=== PATIENT | male | born 1995 | race Caucasian/White ===

== ENCOUNTER 2017-03-25 16:08 | Emergency (ER) | payer BC ==
[2017-03-25 16:22] VITALS: BP 143/67
--- NOTE | 2017-03-25 16:28 | UC ---
Hand/Wrist HPI - HPI Summary HPI Summary: shut right hand in care door yesterday pain in 3/4 fingers abrasion 4th knuckle - History Of Current Complaint Chief Complaint: UCUpperExtremity Stated Complaint: RIGHT HAND PAIN Time Seen by Provider: 03/25/17 16:24 Hx Obtained From: Patient ?: No Mechanism Of Injury: crush injury Onset/Duration: Sudden Onset Severity Initially: Moderate Severity Currently: Moderate Pain Intensity: 5 Pain Scale Used: 0-10 Numeric Character Of Pain: Aching, Throbbing Aggravating Factor(s): Movement Alleviating: Nothing Associated Signs And Symptoms: Positive: Negative Related History: Dominant Hand Right - Allergies/Home Medications Allergies/Adverse Reactions: Allergies Allergy/AdvReac Type Severity Reaction Status Date / Time BEES AND WASPS Allergy Severe ANAPHLAXIS Uncoded 03/25/17 16:13 PMH/Surg Hx/FS Hx/Imm Hx Previously Healthy: No Endocrine History Of: Denies: Diabetes, Thyroid Disease Cardiovascular History Of: Reports: Cardiac Disorders - heart murmur Denies: Hypertension Respiratory History Of: Reports: Asthma - as a child Denies: COPD GI/ History Of: Denies: Ulcer - Surgical History Surgical History: None - Family History Known Family History: Negative: Seizure Disorder - Social History Occupation: Unemployed Lives: With Family Alcohol Use: None Substance Use Type: None Smoking Status (MU): Never Smoked Tobacco - Immunization History Most Recent Influenza Vaccination: NONE Most Recent Tetanus Shot: UTD Most Recent Pneumonia Vaccination: N/A Vaccination Up to Date: Yes Review of Systems Constitutional: Negative Skin: Negative Eyes: Negative ENT: Negative Respiratory: Negative Cardiovascular: Negative Gastrointestinal: Negative Genitourinary: Negative Motor: Negative Neurovascular: Negative Musculoskeletal: Negative, Arthralgia - right 3/4 finger Neurological: Negative Psychological: Negative All Other Systems Reviewed And Are Negative: No Physical Exam Triage Information Reviewed: Yes Appearance: Well-Appearing, No Pain Distress, Well-Nourished Vital Signs: Initial Vital Signs Temp 98.6 F 03/25/17 16:14 Pulse 73 03/25/17 16:14 Resp 18 03/25/17 16:14 BP 143/67 03/25/17 16:14 Pulse Ox 100 03/25/17 16:14 Vital Signs Reviewed: Yes Eye Exam: Normal Eyes: Positive: Conjunctiva Clear ENT Exam: Normal ENT: Positive: Normal ENT inspection, Hearing grossly normal. Negative: Nasal congestion, Nasal drainage, Trismus, Muffled/hoarse voice Dental Exam: Normal Neck exam: Normal Neck: Positive: Supple, Nontender, No Lymphadenopathy Respiratory Exam: Normal Respiratory: Positive: Chest non-tender, No respiratory distress, No accessory muscle use Cardiovascular Exam: Normal Cardiovascular: Positive: RRR, Pulses Normal, Brisk Capillary Refill Musculoskeletal Exam: Normal Musculoskeletal: Positive: Strength Intact, ROM Intact, No Edema Neurological Exam: Normal Neurological: Positive: Alert, Muscle Tone Normal Psychological Exam: Normal Skin Exam: Normal Hand/Wrist Course/Dx - Course Course Of Treatment: Shan Tape, Ibuprofen soap and water wash - Differential Dx/Diagnosis Differential Diagnosis/HQI/PQRI: Contusion, Fracture, Sprain, Strain Provider Diagnoses: Contusion, abrasion Discharge - Discharge Plan Condition: Stable Disposition: HOME Patient Education Materials: Contusion in Adults (ED), Ice Pack Application (ED ), Abrasion (ED) Referrals: [facility] [place] [facility] [Outside] - If Needed
--- NOTE | 2017-03-25 17:13 | RAD ---
Indication: Third and fourth RIGHT finger pain and swelling following crush injury one day ago. Comparison: February 12, 2013 Technique: AP, lateral, and oblique views RIGHT hand. REPORT AND IMPRESSION: Mild soft tissue swelling over the dorsum at the level of the metacarpal phalangeal joints. Negative for fracture or malalignment.
== END 2017-03-25 17:43 | disposition home or self-care (01) ==
LOC: UCCORT 16:08
DX: S60.031A Contusion of right middle finger without damage to nail, initial encounter (principal); S60.041A Contusion of right ring finger without damage to nail, initial encounter; W20.8XXA Other cause of strike by thrown, projected or falling object, initial encounter; Y93.9 Activity, unspecified; Y99.9 Unspecified external cause status
CPT/HCPCS: 99212; G0463

== ENCOUNTER 2018-05-02 18:58 | Emergency (ER) | payer SELFPAY ==
[2018-05-02 20:27] VITALS: BP 153/81
--- NOTE | 2018-05-02 21:07 | ED ---
Upper Extremity Pain - HPI Summary HPI Summary: 23 yr old male with sore throat, congestion, concerned he might have strep throat. - History of Current Complaint Chief Complaint: UCRespiratory Stated Complaint: SINUS,HEADACHE,SORE THROAT Time Seen by Provider: 05/02/18 20:47 - Allergies/Home Medications Allergies/Adverse Reactions: Allergies Allergy/AdvReac Type Severity Reaction Status Date / Time BEES AND WASPS Allergy Severe ANAPHLAXIS Uncoded 05/02/18 20:21 Home Medications: Home Medications Dm/Pseudoephed/Acetaminophen [Day-Time Multi-Symptom Co] 1 cap PO PRN 05/02/18 [ History] PMH/Surg Hx/FS Hx/Imm Hx Endocrine/Hematology History: Denies: Hx Diabetes, Hx Thyroid Disease Cardiovascular History: Denies: Hx Hypertension Respiratory History: Reports: Hx Asthma - as a child Denies: Hx Chronic Obstructive Pulmonary Disease (COPD) GI History: Denies: Hx Ulcer Infectious Disease History: No Infectious Disease History: Denies: Hx Hepatitis, Hx Human Immunodeficiency Virus (HIV), Traveled Outside the [place] in Last 30 Days - Family History Known Family History: Negative: Seizure Disorder - Social History Alcohol Use: None Substance Use Type: Reports: None Smoking Status (MU): Never Smoked Tobacco Review of Systems Constitutional: Negative Positive: Sore Throat, Nasal Discharge All Other Systems Reviewed And Are Negative: Yes Physical Exam Triage Information Reviewed: Yes Vital Signs On Initial Exam: Initial Vitals Temp Pulse Resp BP Pulse Ox 98 F 102 16 153/81 98 05/02/18 20:22 05/02/18 20:22 05/02/18 20:22 05/02/18 20:22 05/02/18 20:22 Vital Signs Reviewed: Yes Appearance: Positive: Well-Appearing, No Pain Distress Skin: Positive: Warm, Skin Color Reflects Adequate Perfusion Head/Face: Positive: Normal Head/Face Inspection Eyes: Positive: EOMI ENT: Positive: Normal ENT inspection, Pharyngeal erythema, TMs normal Neck: Positive: Nontender Respiratory/Lung Sounds: Positive: Clear to Auscultation, Breath Sounds Present Cardiovascular: Positive: RRR. Negative: Murmur Abdomen Description: Positive: Nontender Musculoskeletal: Positive: Strength/ROM Intact Neurological: Positive: Sensory/Motor Intact, Alert, Oriented to Person Place, Time, CN Intact II-III Psychiatric: Positive: Normal - Jeniffer Coma Scale Best Eye Response: 4 - Spontaneous Best Motor Response: 6 - Obeys Commands Best Verbal Response: 5 - Oriented Coma Scale Total: 15 Diagnostics - Vital Signs Vital Signs Temp Pulse Resp BP Pulse Ox 05/02/18 20:22 98 F 102 16 153/81 98 - Laboratory Lab Results: Lab Results 05/02/18 Range/Units 20:35 Group A Strep Rapid Negative (Negative) Lab Statement: Any lab studies that have been ordered have been reviewed, and results considered in the medical decision making process. Course/Dx - Course Course Of Treatment: 23 yr old with URI. DC home. - Diagnoses Provider Diagnoses: Upper respiratory infection, acute, Hypertension Discharge - Sign-Out/Discharge Documenting (check all that apply): Discharge/Admit/Transfer - Discharge Plan Condition: Good Disposition: HOME Patient Education Materials: Hypertension (ED), Upper Respiratory Infection (ED ) Referrals: No Primary Care Phys,NOPCP [Primary Care Provider] - [facility] [place] [facility] REFERR[facility] [Outside] - Billing Disposition and Condition Condition: GOOD Disposition: Home
== END 2018-05-02 21:15 | disposition home or self-care (01) ==
LOC: UCCORT 18:58
DX: J06.9 Acute upper respiratory infection, unspecified (principal); I10 Essential (primary) hypertension
CPT/HCPCS: 87651; 99211; G0463

== ENCOUNTER 2018-06-24 14:31 | Emergency (ER) | payer BC ==
[2018-06-24 15:32] VITALS: BP 156/76
--- NOTE | 2018-06-24 15:40 | UC ---
Lower Extremity/Ankle HPI - HPI Summary HPI Summary: Pt presents with c/o left calf pain that began after using treadmill vigorously for the first time in "a long time" per pt. Pt states he ran on treadmill and pain came two days after using treadmill. Pain is posterior left calf that radiates posterior lower leg to left knee. Denies injury, red streaking, wound , or use of left foot. - History of Current Complaint Chief Complaint: UCLowerExtremity Stated Complaint: LT KNEE COMPLAINT Time Seen by Provider: 06/24/18 15:28 Hx Obtained From: Patient Onset/Duration: Sudden Onset, Lasting Days Severity Initially: Mild Severity Currently: Mild Pain Intensity: 2 Aggravating Factor(s): Standing, Ambulation Alleviating Factor(s): Rest, Elevation, Ice Able to Bear Weight: Yes - Risk Factors Gout Risk Factors: Male, Obesity DVT Risk Factors: Negative Septic Arthritis Risk Factor: Negative - Allergies/Home Medications Allergies/Adverse Reactions: Allergies Allergy/AdvReac Type Severity Reaction Status Date / Time BEES AND WASPS Allergy Severe ANAPHLAXIS Uncoded 06/24/18 15:26 PMH/Surg Hx/FS Hx/Imm Hx Previously Healthy: Yes - Surgical History Surgical History: None - Family History Known Family History: Negative: Seizure Disorder - Social History Occupation: Employed Full-time Lives: With Family Alcohol Use: None Substance Use Type: None Smoking Status (MU): Never Smoked Tobacco Have You Smoked in the Last Year: No - Immunization History Most Recent Influenza Vaccination: NONE Most Recent Tetanus Shot: UTD Most Recent Pneumonia Vaccination: N/A Vaccination Up to Date: Yes Review of Systems Constitutional: Negative Skin: Negative Eyes: Negative ENT: Negative Respiratory: Negative Cardiovascular: Negative Gastrointestinal: Negative Genitourinary: Negative Motor: Negative Neurovascular: Negative Musculoskeletal: Myalgia - left posterior lower leg Neurological: Negative Psychological: Negative Is Patient Immunocompromised?: No All Other Systems Reviewed And Are Negative: Yes Physical Exam Triage Information Reviewed: Yes Appearance: Well-Appearing Vital Signs: Initial Vital Signs Temp 97.6 F 06/24/18 15:27 Pulse 82 06/24/18 15:27 Resp 16 06/24/18 15:27 BP 156/76 06/24/18 15:27 Pulse Ox 98 06/24/18 15:27 Vital Signs Reviewed: Yes Eye Exam: Normal ENT Exam: Normal ENT: Positive: Hearing grossly normal Dental Exam: Normal Neck exam: Normal Respiratory: Positive: No respiratory distress Musculoskeletal Exam: Normal Musculoskeletal: Positive: Strength Intact, ROM Intact, No Edema Neurological Exam: Normal Psychological Exam: Normal Skin Exam: Normal Lower Extremity Course/Dx - Differential Dx/Diagnosis Differential Diagnosis/HQI/PQRI: Sprain, Strain, Tendonitis Provider Diagnoses: tendonitis left lower leg Discharge - Sign-Out/Discharge Documenting (check all that apply): Patient Departure - Discharge Plan Condition: Stable Disposition: HOME Patient Education Materials: Tendinitis (ED), R.I.C.E. Treatment (ED), Safe Use of NSAIDs (ED) Forms: *Work Release Referrals: [facility] [place] [facility] REFERR[facility] [Outside] - If Needed Kiana Trinidad MD [Medical Doctor] - If Needed No Primary Care Phys,NOPCP [Primary Care Provider] - - Billing Disposition and Condition Condition: STABLE Disposition: Home
== END 2018-06-24 15:45 | disposition home or self-care (01) ==
LOC: UCCORT 14:31
DX: M76.892 Other specified enthesopathies of left lower limb, excluding foot (principal); Z91.030 Bee allergy status
CPT/HCPCS: 99211; G0463

== ENCOUNTER 2018-09-01 18:30 | Emergency (ER) | payer BC ==
[2018-09-01 19:13] VITALS: BP 146/81
--- NOTE | 2018-09-01 19:28 | ED ---
Respiratory - HPI Summary HPI Summary: pain in the left ear and some associated dizzyness - History of Current Complaint Chief Complaint: UCGeneralIllness Stated Complaint: SINUSES,PND Time Seen by Provider: 09/01/18 19:08 Hx Obtained From: Patient Onset/Duration: Lasting Days Initial Severity: Moderate Current Severity: Moderate Pain Intensity: 3 Sputum Amount: Scant Sputum Color: Yellow Alleviating Factor(s): Nothing Associated Signs and Symptoms: Negative - Risk Factors Status Asthmaticus Risk Factors: Negative Pulmonary Embolism Risk Factors: Negative Cardiac Risk Factors: Negative Pseudomonas Risk Factors: Negative Tuberculosis Risk Factors: Negative - Allergy/Home Medications Allergies/Adverse Reactions: Allergies Allergy/AdvReac Type Severity Reaction Status Date / Time BEES AND WASPS Allergy Severe ANAPHLAXIS Uncoded 09/01/18 19:13 PMH/Surg Hx/FS Hx/Imm Hx Previously Healthy: Yes Endocrine/Hematology History: Denies: Hx Diabetes, Hx Thyroid Disease Cardiovascular History: Denies: Hx Hypertension Respiratory History: Reports: Hx Asthma - as a child Denies: Hx Chronic Obstructive Pulmonary Disease (COPD) GI History: Denies: Hx Ulcer Infectious Disease History: No Infectious Disease History: Denies: Hx Hepatitis, Hx Human Immunodeficiency Virus (HIV), Traveled Outside the [place] in Last 30 Days - Family History Known Family History: Negative: Seizure Disorder - Social History Alcohol Use: None Substance Use Type: Reports: None Smoking Status (MU): Never Smoked Tobacco Have You Smoked in the Last Year: No Review of Systems Positive: Fatigue Eyes: Negative ENT: Negative Cardiovascular: Negative Respiratory: Negative Gastrointestinal: Negative Genitourinary: Negative Musculoskeletal: Negative Skin: Negative All Other Systems Reviewed And Are Negative: Yes Physical Exam Triage Information Reviewed: Yes Vital Signs On Initial Exam: Initial Vitals Temp Pulse Resp BP Pulse Ox 37.4 C 104 18 146/81 100 09/01/18 19:08 09/01/18 19:08 09/01/18 19:08 09/01/18 19:08 09/01/18 19:08 Vital Signs Reviewed: Yes Appearance: Positive: Well-Appearing Skin: Positive: Warm, Dry Eyes: Positive: Normal ENT: Positive: Tonsillar swelling, Other - minimal erythema left TM Neck: Positive: Supple Respiratory/Lung Sounds: Positive: Clear to Auscultation Cardiovascular: Positive: Normal Abdomen Description: Positive: Nontender Bowel Sounds: Positive: Present Musculoskeletal: Positive: Normal Neurological: Positive: Normal Diagnostics - Vital Signs Vital Signs Temp Pulse Resp BP Pulse Ox 09/01/18 19:08 37.4 C 104 18 146/81 100 - Laboratory Lab Statement: Any lab studies that have been ordered have been reviewed, and results considered in the medical decision making process. Disposition - Diagnoses Provider Diagnoses: Serous otitis media Discharge - Sign-Out/Discharge Documenting (check all that apply): Patient Departure All imaging exams completed and their final reports reviewed: No Studies - Discharge Plan Condition: Good Disposition: HOME Prescriptions: Amoxicillin PO (*) [Amoxicillin 875 MG (*)] 875 mg PO BID #14 tab Patient Education Materials: Serous Otitis Media (ED) Forms: *Work Release Referrals: No Primary Care Phys,NOPCP [Primary Care Provider] - - Billing Disposition and Condition Condition: GOOD Disposition: Home
--- NOTE | 2018-09-02 10:33 | UC ---
Discharge - Sign-Out/Discharge Documenting (check all that apply): Post-Discharge Follow Up All imaging exams completed and their final reports reviewed: No Studies - Discharge Plan Condition: Good Disposition: HOME Prescriptions: Amoxicillin PO (*) [Amoxicillin 875 MG (*)] 875 mg PO BID #14 tab Patient Education Materials: Serous Otitis Media (ED) Forms: *Work Release Referrals: No Primary Care Phys,NOPCP [Primary Care Provider] - - Billing Disposition and Condition Condition: GOOD Disposition: Home
== END 2018-09-01 20:06 | disposition home or self-care (01) ==
LOC: UCCORT 18:30
DX: H65.02 Acute serous otitis media, left ear (principal); Z91.030 Bee allergy status
CPT/HCPCS: 87651; 99212; G0463

== ENCOUNTER 2019-11-06 10:21 | Emergency (ER) | payer BC ==
[2019-11-06 11:15] VITALS: BP 152/82
--- NOTE | 2019-11-06 11:48 | ED ---
Throat Pain/Nasal Congestion - HPI Summary HPI Summary: 24 yr old male with the complaint of sore throat for about three days. No drooling, no stridor, no fever or chills. He has had headache intermittent for the past two months that is stabbing at times. No change in gait, no focal weakness. No other complaints. - History of Current Complaint Chief Complaint: UCGeneralIllness Time Seen by Provider: 11/06/19 11:23 - Allergies/Home Medications Allergies/Adverse Reactions: Allergies Allergy/AdvReac Type Severity Reaction Status Date / Time BEES AND WASPS Allergy Severe ANAPHLAXIS Uncoded 11/06/19 11:16 Home Medications: Home Medications NK [No Home Medications Reported] 11/06/19 [History Confirmed 11/06/19] PMH/Surg Hx/FS Hx/Imm Hx Endocrine/Hematology History: Denies: Hx Diabetes, Hx Thyroid Disease Cardiovascular History: Denies: Hx Hypertension Respiratory History: Reports: Hx Asthma - as a child Denies: Hx Chronic Obstructive Pulmonary Disease (COPD) GI History: Denies: Hx Ulcer Infectious Disease History: No Infectious Disease History: Denies: Hx Hepatitis, Hx Human Immunodeficiency Virus (HIV), Traveled Outside the [place] in Last 30 Days - Family History Known Family History: Negative: Seizure Disorder - Social History Alcohol Use: Occasionally Substance Use Type: Reports: None Smoking Status (MU): Never Smoked Tobacco Have You Smoked in the Last Year: No Review of Systems Constitutional: Negative Positive: Sore Throat Positive: Headache All Other Systems Reviewed And Are Negative: Yes Physical Exam Triage Information Reviewed: Yes Vital Signs On Initial Exam: Initial Vitals Temp Pulse Resp BP Pulse Ox 97.5 F 67 16 152/82 99 11/06/19 11:10 11/06/19 11:10 11/06/19 11:10 11/06/19 11:10 11/06/19 11:10 Vital Signs Reviewed: Yes Appearance: Positive: Well-Appearing, No Pain Distress Skin: Positive: Warm, Skin Color Reflects Adequate Perfusion Head/Face: Positive: Normal Head/Face Inspection Eyes: Positive: EOMI ENT: Positive: Pharyngeal erythema. Negative: Sinus tenderness Neck: Positive: Nontender Respiratory/Lung Sounds: Positive: Clear to Auscultation, Breath Sounds Present Cardiovascular: Positive: RRR. Negative: Murmur Abdomen Description: Negative: Distended Musculoskeletal: Positive: Strength/ROM Intact Neurological: Positive: Sensory/Motor Intact, Alert, Oriented to Person Place, Time, CN Intact II-III, Normal Gait, Speech Normal Psychiatric: Positive: Normal Diagnostics - Vital Signs Vital Signs Temp Pulse Resp BP Pulse Ox 11/06/19 11:10 97.5 F 67 16 152/82 99 - Laboratory Lab Statement: Any lab studies that have been ordered have been reviewed, and results considered in the medical decision making process. EENT Course/Dx - Course Course Of Treatment: 24 yr old with sore throat. headache for months. recommend to ER for further eval. Rapid strep neg. - Diagnoses Provider Diagnoses: Pharyngitis, Headache Discharge ED - Sign-Out/Discharge Documenting (check all that apply): Patient Departure All imaging exams completed and their final reports reviewed: No Studies - Discharge Plan Condition: Good Disposition: HOME-RECOMMEND TO ED Patient Education Materials: Pharyngitis (ED), Acute Headache (ED) Referrals: [facility] PHYS[facility]IAN REFERRAL [Outside] No Primary Care Phys,NOPCP [Primary Care Provider] - Additional Instructions: YOU NEED TO GO TO THE ER FOR EVALUATION OF YOUR HEADACHE AND SYMPTOMS. - Billing Disposition and Condition Condition: GOOD Disposition: Home-Recommend to ED
== END 2019-11-06 12:04 | disposition home health service (06) ==
LOC: UCCORT 10:21
DX: J02.9 Acute pharyngitis, unspecified (principal); R51 Headache; Z91.030 Bee allergy status
CPT/HCPCS: 87651; 99212; G0463